=== PATIENT | female | born 1970 | race African-American/Black ===

== ENCOUNTER 2016-12-16 17:59 | Emergency (ER) | payer OTHER ==
[~2016-12-16] VITALS: Ht 162.6 cm; Wt 74.0 kg
[~2016-12-16 17:59] MED LIST: HYDR-3498 PO; ONDA4TAB35 PO; RANI150T9 PO
[2016-12-16 18:02] VITALS: Ht 162.6 cm; Wt 74.0 kg
[2016-12-16] MEDS ORDERED: LIDOCAINE 1% (MDV) 20 ML INJ INJ STA (20:20)
[2016-12-16] MEDS ORDERED: IBUP-1542 PO (20:48)
[2016-12-16] MEDS ORDERED: TRAM50TA2 PO (20:48)
--- NOTE | 2016-12-16 20:51 | ERD ---
ER Documentation Chief Complaint Date/Time DATE: 12/16/16 TIME: 20:49 Chief Complaint CHIN LAC S/P SLIP AND FALL ON WET FLOOR HPI This is a pleasant 46-year-old female who presents with a laceration under the left side of her chin she sustained today with a broom on accident. She is unsure of her last tetanus vaccination. Denies possibility of retained foreign body. Pain is mild to moderate throbbing over the site of the laceration. ROS All systems reviewed and are negative except as per history of present illness. Medications Home Meds Active Scripts Tramadol HCl (Tramadol HCl) 50 Mg Tablet, 50 MG PO Q4 Y for PAIN, #20 TAB Prov:CAROLINA RITCHIE PA-C 12/16/16 Ibuprofen* (Motrin*) 600 Mg Tab, 600 MG PO Q6, #30 TAB Prov:CAROLINA RITCHIE PA-C 12/16/16 Ranitidine Hcl* (Zantac*) 150 Mg Tablet, 150 MG PO BID for EPIGASTRIC PAIN, #20 TAB Prov:GEORGE GIORDANO DO 10/15/15 Ondansetron Hcl* (Zofran* ODT) 4 mg -ODT Tab.disper, 4 MG PO Q6 Y for NAUSEA AND /OR VOMITING, #8 TAB Prov:GEORGE GIORDANO DO 10/15/15 Hydrocodone Bit-Acetaminophen* ([place]*) 5-325 Mg Tab, 1 TAB PO Q6 Y for PAIN, # 7 TAB Prov:GEORGE GIORDANO DO 10/15/15 Allergies Allergies: Coded Allergies: No Known Allergy (Unverified , 06/02/14) PMhx/Soc Medical and Surgical Hx: pt denies Medical Hx, pt denies Surgical Hx History of Surgery: No Anesthesia Reaction: No Hx Neurological Disorder: No Hx Respiratory Disorders: No Hx Cardiac Disorders: No Hx Psychiatric Problems: No Hx Miscellaneous Medical Probl: No (PATIENT DENIES MEDICAL AND SURGICAL HX.) Hx Alcohol Use: No Hx Substance Use: No Hx Tobacco Use: No Smoking Status: Never smoker FmHx Family History: No diabetes Physical Exam Vitals Vital Signs Date Time Temp Pulse Resp B/P Pulse Ox O2 Delivery O2 Flow Rate FiO2 12/16/16 18:02 98.8 98 18 136/88 98 Physical Exam General: well developed, well nourished, alert, nontoxic, no distress Head: normocephalic, atraumatic Neck: Supple, nontender, no lymphadenopathy, no midline tenderness Oropharynx: no tonsilar erythema or edema, uvula midline, no exudates, no kissing tonsils, no drooling Respiratory: Clear to auscaultation bilaterally, speaks in full sentences, no use of accesory muscles or labored breathing, no rales, ronchi, or wheezing Cardiovascular: RRR, No murmurs Skin: Under the left side of the chin there is a 3 cm C-shaped laceration, no bleeding or Results 24 hrs Current Medications Medications (Trade) Dose Ordered Sig/Noa Route PRN Reason Start Time Stop Time Status Last Admin Dose Admin Lidocaine (Xylocaine 1% (Mdv) 20 ml) 20 ml ONCE STAT INJ 12/16/16 20:20 12/16/16 20:21 DC Diphtheria/ Tetanus/Acell Pertussis (Adacel) 0.5 ml ONCE ONCE IM* 12/16/16 21:00 12/16/16 21:01 Procedures/MDM 46-year-old female presents with chin laceration. Her wound was irrigated with normal saline and prepped with Betadine. 1% plain lidocaine was used to anesthetize the wound and in a series of 6 simple interrupted sutures using 4-0 Prolene were used to close the wound. Patient tolerated the procedure well and there were no complication. Wound was dressed and bandaged. Recommended 2 day wound check in 7-10 days for removal of sutures. She was given prescription for ibuprofen and tramadol for pain. Also recommended applying a thin layer of Neosporin twice a day to help with scarring. She was given tetanus vaccination here in the emergency room. Recommended this patient follow up with her primary care doctor within 48 hours or return to the emergency room for any worsening of symptoms. However this time I do believe there is suitable for outpatient management. I answered all their questions and they agreed with the plan and were discharged home. Departure Diagnosis: Primary Impression: Laceration Patient Instructions: Suture Care Additional Instructions: Call your primary care doctor TOMORROW for an appointment during the next 1-2 days.See the doctor sooner or return here if your condition worsens before your appointment time. Call your primary care doctor TOMORROW for an appointment during the next 1 WEEK.Tell the assistant secretary that you were referred from this facility.See the doctor sooner or return here if your condition worsens before your appointment time. CAROLINA RITCHIE PA-C December 16, 2016 20:51
[2016-12-16] MEDS ORDERED: DIPHTH/TET/ACEL PERTUSS (ADULT) 0.5 ML VIAL IM* ONE (21:00)
== END 2016-12-16 21:02 | disposition home or self-care (01) ==
LOC: FTE 17:59
DX: S01.81XA Laceration without foreign body of other part of head, initial encounter (principal); W01.0XXA Fall on same level from slipping, tripping and stumbling without subsequent striking against object, initial encounter; Y92.9 Unspecified place or not applicable; Z23 Encounter for immunization
CPT/HCPCS: 12013; 90471; 90715; Z7502